=== PATIENT | female | born 1980 | race Two or more races ===

== ENCOUNTER 2021-04-02 21:29 | Emergency (ER) | payer MEDICAID ==
[~2021-04-02] VITALS: Ht 152.4 cm; Wt 54.4 kg
[2021-04-02 21:30] VITALS: BP 110/84
--- NOTE | 2021-04-02 22:01 | NUR ---
XRAY AT BEDSIDE.
[2021-04-02] MEDS ORDERED: NAPR-1164 PO (22:09)
[2021-04-02] MEDS ORDERED: NAPROXEN 250 MG TABLET ONE (22:28)
[2021-04-02] MEDS ORDERED: NAPROXEN 500 MG TABLET PO ONE (22:30)
--- NOTE | 2021-04-03 00:20 | NUR ---
PT is medically stable for d/c . Patient discharged to home in stable condition. Rx and Written and verbal after care instructions given. Patient verbalizes understanding of instruction.
== END 2021-04-03 00:37 | disposition home or self-care (01) ==
LOC: ER 21:35
DX: M94.0 Chondrocostal junction syndrome [Tietze] (principal); M77.11 Lateral epicondylitis, right elbow; Z88.6 Allergy status to analgesic agent
CPT/HCPCS: 71045-TC; 73080-TC

== ENCOUNTER 2022-11-11 01:58 | Inpatient (IN) | payer MEDICAID ==
[~2022-11-11] VITALS: Ht 162.6 cm; Wt 63.0 kg
[~2022-11-11 01:58] MED LIST: NAPR-1164 PO
--- NOTE | 2022-11-11 02:15 | NUR ---
TO ER BED 10. BIBSON C/O SHARP CHEST PAIN X THIS AM. ADMITS TO NAUSEA. PT IS ALERT AND ORIENTED. RR EVEN AND NONLABORED. CONNECTED TO POX AND HEART MONITOR
[2022-11-11] MEDS ORDERED: KETOROLAC TROMETHAMINE INJ 30 MG/ML VIAL IV ONE ×2 (02:30→05:00)
[2022-11-11] MEDS ORDERED: ONDANSETRON HCL/PF 4 MG/2 ML VIAL IV ONE ×2 (02:30→05:00)
[2022-11-11] MEDS ORDERED: KETOROLAC TROMETHAMINE 15 MG/ML VIAL ONE ×2 (02:32→05:06)
[2022-11-11] MEDS ORDERED: ONDANSETRON HCL/PF 4 MG/2 ML VIAL ONE ×2 (02:32→05:06)
[2022-11-11 02:42] LABS: BASOPHILS # (AUTO) 0.1 K/uL (0.0-0.2); BASOPHILS % (AUTO) 0.7 % (0.0-2.0); EOSINOPHILS % (AUTO) 2.6 % (0.0-6.0); HEMATOCRIT 38 % (33-45); HEMOGLOBIN 12.8 g/dL (11.5-14.8); LYMPHOCYTES # (AUTO) 2.8 K/uL (0.8-4.8); MEAN CORPUSCULAR HGB CONC 34 g/dl (31.0-36.0); MEAN CORPUSCULAR VOLUME 86 fL (82-100); MONOCYTES # (AUTO) 0.6 K/uL (0.1-1.30); MONOCYTES % (AUTO) 5.9 % (2.0-12.0); NEUTROPHILS # (AUTO) 6.3 K/uL (1.8-8.9); NEUTROPHILS % (AUTO) 62.8 % (43.0-81.0); PLATELET COUNT (AUTO) 239 K/uL (150-450); RED BLOOD CELL COUNT(AUTO) 4.41 MIL/uL (4.0-5.2)
--- NOTE | 2022-11-11 02:42 | NUR ---
IV LINE ESTABLISHED, RAC20G
[2022-11-11 02:53] LABS: CALCIUM, SERUM 8.9 mg/dL (8.5-10.1); CREATININE 0.8 mg/dL (0.6-1.3); POTASSIUM 3.6 mmol/L (3.5-5.1)
[2022-11-11 02:54] LABS: ALANINE AMINOTRANSFERASE 28 U/L (12-78); ALBUMIN 3.7 g/dL (3.4-5.0); ALKALINE PHOSPHATASE 38 U/L (46-116); ASPARTATE AMINOTRANSFERASE 14 U/L (15-37); BILIRUBIN,DIRECT 0.1 mg/dL (0.0-0.2); BILIRUBIN,TOTAL 0.4 mg/dL (0.2-1.0); LIPASE 147 U/L (73-393); TOTAL PROTEIN, SERUM 7.6 g/dL (6.4-8.2)
[2022-11-11 02:56] LABS: ALBUMIN 3.7 g/dL (3.4-5.0); BILIRUBIN,TOTAL 0.4 mg/dL (0.2-1.0); TOTAL PROTEIN, SERUM 7.6 g/dL (6.4-8.2)
--- NOTE | 2022-11-11 03:06 | NUR ---
URINE SAMPLE COLLECTED
[2022-11-11 04:04] LABS: BILIRUBIN,URINE NEGATIVE (NEGATIVE); COLOR,URINE YELLOW (YELLOW); LEUKOCYTE ESTERASE ,URINE NEGATIVE (NEGATIVE); NITRITE, URINE NEGATIVE (NEGATIVE); PH,URINE 6.5 (5.0-8.0); PROTEIN,URINE NEGATIVE (NEGATIVE); UGLUCOSE NEGATIVE (NEGATIVE); UROBILINOGEN,URINE 0.2 EU/dL (0.2)
--- NOTE | 2022-11-11 05:39 | NUR ---
COVID SWAB COLLECTED
[2022-11-11] MEDS ORDERED: METRONIDAZOLE 500MG/ NS 100ML 100 ML IV ONE (05:50)
[2022-11-11] MEDS ORDERED: CEFTRIAXONE 1GM BAG (ER ONLY) 50 ML IV ONE (05:50)
[2022-11-11] MEDS ORDERED: FLAGYL/NS RTU 500 MG/100 ML PIGGYBACK IV ONE (06:00)
[2022-11-11] MEDS ORDERED: CEFTRIAXONE 1GM BAG (ER ONLY) 1 GM/50 ML PIGGYBACK IV ONE (06:00)
[2022-11-11] MEDS ORDERED: MAG HYDROX/AL HYDROX/SIMETH 30 ML UDC PO PRN (06:30)
[2022-11-11] MEDS ORDERED: ZOLPIDEM TARTRATE 5 MG TABLET PO PRN (06:30)
[2022-11-11] MEDS ORDERED: ACETAMINOPHEN 325 MG TABLET PO PRN (06:30)
[2022-11-11] MEDS ORDERED: Z GUARD REMEDY 4 OZ OINT TP PRN (06:30)
[2022-11-11] MEDS ORDERED: ONDANSETRON HCL/PF 4 MG/2 ML VIAL IVP PRN (06:30)
[2022-11-11] MEDS ORDERED: MAGNESIUM HYDROXIDE 30 ML UDC PO PRN (06:30)
--- NOTE | 2022-11-11 08:00 | NUR ---
PT RESTING IN BED, EYES CLOSED. ABLE TO BE AWAKENED. NOT IN ACUTE DISTRESS.
[2022-11-11] MEDS: IV D5/0.45 NACL 1,000 ML IV PRN ×2 (08:07→15:16)
[2022-11-11] MEDS: PANTOPRAZOLE 40 MG VIAL IV SCH (09:45)
[2022-11-11] MEDS ORDERED: PANTOPRAZOLE 40 MG VIAL ONE (10:13)
[2022-11-11] MEDS: ZOSYN IVPB 3.375 G in IV D5W 50ml IV SCH ×3 (10:30→21:01)
--- NOTE | 2022-11-11 11:15 | NUR ---
CONSENT FORMS SIGNED BY PT AND PLACED IN THE CHART.
--- NOTE | 2022-11-11 14:11 | NUR ---
tele [phone] bed 2
--- NOTE | 2022-11-11 14:34 | NUR ---
REPORT GIVEN TO HELENA SANCHEZ - CONTINUE PLAN OF CARE.
--- NOTE | 2022-11-11 14:45 | NUR ---
MS RN ADMITTING NOTE RECEIVED PATIENT FROM ER AT 1435H VIA GURNEY WITH 1 ER ADJUNCT LATIN PROFESSOR AND TWO SONS; PATIENT IS ALERT AND ORIENTED X 4, ON ROOM AIR BREATHING EVENLY AND TOLERATING WELL, NO RESPIRATORY DISTRESS NOTED; DENIES ANY PAIN OR DISCOMFORT AT THIS TIME; PATIENT ORIENTED TO STAFF AND ROOM, VITAL SIGNS TAKEN STABLE AND RECORDED; SKIN IS INTACT; WITH IV ACCESS IN RAC G20, INTACT AND PATENT; SAFETY PRECAUTIONS IN PLACED, BED IN LOW POSITION, LOCKED, SIDE RAILS UP X 3, CALL LIGHT WITHIN REACH; ENDORSED TO BEDSIDE NURSE FOR CONTINUITY OF CARE
--- NOTE | 2022-11-11 19:39 | NUR ---
MS RN CLOSING NOTE PATIENT AWAKE IN BED, ALERT AND ORIENTED X 4, ON ROOM AIR BREATHING EVENLY AND TOLERATING WELL, NO RESPIRATORY DISTRESS NOTED; DENIES ANY PAIN OR DISCOMFORT AT THIS TIME, WITH IV ACCESS IN RAC G20, INTACT AND PATENT; SAFETY PRECAUTIONS IN PLACED, BED IN LOW POSITION, LOCKED, SIDE RAILS UP X 3, CALL LIGHT WITHIN REACH; ENDORSED TO NIGHTSHIFT NURSE FOR CONTINUITY OF CARE
[2022-11-11 20:00] VITALS: BP 90/58
--- NOTE | 2022-11-11 20:00 | NUR ---
MS RN OPENING NOTE RECEIVED PATIENT AWAKE IN BED, ALERT AND ORIENTED X 4, ON ROOM AIR BREATHING EVENLY AND TOLERATING WELL, NO RESPIRATORY DISTRESS NOTED. COMPLAINS OF HEADACHE 2/. GIVEN TYLENOL TAB PRN ORDERED. WITH IV ACCESS IN RIGHT AC #20, INTACT AND PATENT INFUSING D5NS AT 75ML/H. KEPT COMFORTABLE. SAFETY PRECAUTIONS IN PLACED, BED IN LOW POSITION, LOCKED, SIDE RAILS UP X 3, CALL LIGHT WITHIN REACH. WILL CONTINUE TO MONITOR.
[2022-11-12] MEDS: ZOSYN IVPB 3.375 G in IV D5W 50ml IV SCH ×4 (04:13→21:21)
[2022-11-12 06:24] LABS: CALCIUM, SERUM 7.9 mg/dL (8.5-10.1); CREATININE 0.8 mg/dL (0.6-1.3); PHOSPHORUS 3.7 mg/dL (2.5-4.9); POTASSIUM 3.6 mmol/L (3.5-5.1)
--- NOTE | 2022-11-12 06:24 | NUR ---
MS RN CLOSING NOTE RECEIVED PATIENT AWAKE IN BED, ALERT AND ORIENTED X 4, ON ROOM AIR BREATHING EVENLY AND TOLERATING WELL, NO RESPIRATORY DISTRESS NOTED. WITH IV ACCESS IN RIGHT AC #20, INTACT AND PATENT INFUSING D5NS AT 75ML/H. KEPT COMFORTABLE. SAFETY PRECAUTIONS IN PLACED. SURGERY SCHEDULED TODAY BETWEEN 3-4PM. PATIENT WAS INFORMED. KEPT COMFORTABLE. WILL ENDORSE TO NEXT SHIFT RN FOR AMADA.
[2022-11-12 06:30] LABS: BASOPHILS % (AUTO) 0.4 % (0.0-2.0); EOSINOPHILS % (AUTO) 3.6 % (0.0-6.0); HEMATOCRIT 34 % (33-45); HEMOGLOBIN 11.7 g/dL (11.5-14.8); LYMPHOCYTES # (AUTO) 1.8 K/uL (0.8-4.8); LYMPHOCYTES % (AUTO) 32.5 % (20.0-44.0); MEAN CORPUSCULAR HGB CONC 34 g/dl (31.0-36.0); MEAN CORPUSCULAR VOLUME 85 fL (82-100); MONOCYTES # (AUTO) 0.4 K/uL (0.1-1.30); MONOCYTES % (AUTO) 6.3 % (2.0-12.0); NEUTROPHILS # (AUTO) 3.2 K/uL (1.8-8.9); NEUTROPHILS % (AUTO) 57.2 % (43.0-81.0); PLATELET COUNT (AUTO) 219 K/uL (150-450); RED BLOOD CELL COUNT(AUTO) 3.99 MIL/uL (4.0-5.2); WHITE BLOOD COUNT (AUTO) 5.7 K/uL (4.3-11.0)
--- NOTE | 2022-11-12 07:30 | NUR ---
MS RN OPENING NOTE RECEIVED PATIENT AWAKE IN BED, ALERT AND ORIENTED X 4, ON ROOM AIR BREATHING EVENLY AND TOLERATING WELL, NO RESPIRATORY DISTRESS NOTED. WITH IV ACCESS IN RIGHT AC #20, INTACT AND PATENT INFUSING D5NS AT 75ML/H. SAFETY PRECAUTIONS IN PLACED. SURGERY SCHEDULED TODAY BETWEEN 3-4PM. WILL CONTINUE TO MONITOR.
[2022-11-12 08:00] VITALS: BP 90/40
[2022-11-12] MEDS: PANTOPRAZOLE 40 MG VIAL IV SCH (08:19)
[2022-11-12] MEDS: IV D5/0.45 NACL 1,000 ML IV PRN (09:16)
[2022-11-12] MEDS ORDERED: LIDOCAINE 1% INJ 50 ML MDV IJ ONE (10:09)
[2022-11-12] MEDS ORDERED: BUPIVACAINE MPF W/EPI 0.25% 30 ML VIAL ONE (10:09)
[2022-11-12] MEDS ORDERED: IV NS 0.9% 500 ML IV ONE (10:30)
--- NOTE | 2022-11-12 14:50 | NUR ---
RN NOTES PATIENT LEFT THE UNIT TO OR FOR LAP SCAR PROCEDURE. WILL MONITOR.
[2022-11-12] MEDS ORDERED: FENTANYL PF 250MCG/5ML AMPUL ONE (16:03)
[2022-11-12] MEDS ORDERED: MIDAZOLAM HCL 2 MG/2ML VIAL ONE (16:04)
[2022-11-12] MEDS ORDERED: HYDROMORPHONE INJ 2 MG/ML DISP.SYRIN ONE (16:04)
[2022-11-12] MEDS ORDERED: FAMOTIDINE/PF INJ 20 MG/2 ML VIAL IV ONE (16:05)
[2022-11-12] MEDS ORDERED: ROCURONIUM BROMIDE 50 MG/5 ML ONE (16:05)
[2022-11-12] MEDS ORDERED: ANESTHESIA TRAY IN PYXIS 1 EA TRAY MC ONE (16:19)
--- NOTE | 2022-11-12 17:57 | NUR ---
PATIENT STILL NOT IN THE UNIT AT THIS TIME. WILL MONITOR.
--- NOTE | 2022-11-12 18:34 | NUR ---
RN CLOSING NOTE PATIENT CAME BACK FROM OR AT AROUND 1820H. PT IS ASLEEP IN BED, EASILY AROUSED. ON ROOM AIR BREATHING EVENLY AND TOLERATING WELL, NO RESPIRATORY DISTRESS NOTED; VITAL SIGNS TAKEN STABLE AND RECORDED. INITAL VITALS ARE FOLLOWS BP-100/64 OH-69 SPO2-98% T-98 MONITOR PATIENT'S VITALS EVERY 15MINS FOR ONE HOUR. INCISION SITE AT ABDOMINAL AREA INTACT, NO SIGNS OF SWELLING,REDNESS AND BLEEDING WITH IV ACCESS IN RAC G20 SL, INTACT AND PATENT;HEAD OF THE BED ELEVATED ORDERED. SAFETY PRECAUTIONS IN PLACED, BED IN LOW POSITION, LOCKED, SIDE RAILS UP X 3, CALL LIGHT WITHIN REACH; KEPT COMFORTABLE. ENDORSED TO NIGHT NURSE FOR CONTINUITY OF CARE.
--- NOTE | 2022-11-12 19:45 | NUR ---
MSRN FULLY AWAKE, APPEARS TO BE IN PAIN, FAMILY AT BEDSIDE. ASSESSED LEVEL OF PAIN, TOLERABLE FOR NOW A TRANSLATED BY FAMILY MEMBER. PRESENT IVF INFUSING WELL. PLAN OF CARE AND MEDICATION REGIMEN DISCUSSED WITH PATIENT AND FAMILY, WELL UNDERSTOOD. KEPT COMFORTABLE TO CONTINUE.
[2022-11-12] MEDS: KETOROLAC TROMETHAMINE INJ 30 MG/ML VIAL IM PRN (20:07)
--- NOTE | 2022-11-12 20:10 | NUR ---
MSRN POST OP PAIN LEVEL 8, TORADOL 15 MG ADMINISTERED ORDERED. CLOSELY WATCHED.
--- NOTE | 2022-11-12 20:15 | NUR ---
MSRN ENCOURAGED DEEP BREATHING EXERCISES, REMINDED TO CALL STAFF FOR ANY FURTHER DISCOMFORT. CALL LIGHT WITHIN REACH.
[2022-11-12 21:00] VITALS: BP 96/60
--- NOTE | 2022-11-13 01:10 | NUR ---
MSRN ASSISTED TO RESTROOM, VOIDED FREELY. NAUSEATED, ZOFRAN ADMINISTERED. WITH RELIEF. INCENTIVE SPIROMETRY USE INSTRUCTED WITH RETURN DEMO. WELL UNDERSTOOD. IVF CONTINUED.
[2022-11-13] MEDS: KETOROLAC TROMETHAMINE INJ 30 MG/ML VIAL IM PRN ×2 (02:05→18:35)
[2022-11-13] MEDS: ZOSYN IVPB 3.375 G in IV D5W 50ml IV SCH ×4 (05:04→21:46)
[2022-11-13 05:45] LABS: HEMATOCRIT 34 % (33-45); HEMOGLOBIN 11.5 g/dL (11.5-14.8); LYMPHOCYTES # (AUTO) 0.4 K/uL (0.8-4.8); LYMPHOCYTES % (AUTO) 2.2 % (20.0-44.0); MEAN CORPUSCULAR HGB CONC 34 g/dl (31.0-36.0); MEAN CORPUSCULAR VOLUME 85 fL (82-100); MONOCYTES # (AUTO) 0.4 K/uL (0.1-1.30); MONOCYTES % (AUTO) 2.2 % (2.0-12.0); NEUTROPHILS # (AUTO) 17.8 K/uL (1.8-8.9); NEUTROPHILS % (AUTO) 95.6 % (43.0-81.0); PLATELET COUNT (AUTO) 217 K/uL (150-450); RED BLOOD CELL COUNT(AUTO) 3.99 MIL/uL (4.0-5.2); WHITE BLOOD COUNT (AUTO) 18.6 K/uL (4.3-11.0)
[2022-11-13 06:17] LABS: ALBUMIN 3.1 g/dL (3.4-5.0); BILIRUBIN,TOTAL 0.7 mg/dL (0.2-1.0); CALCIUM, SERUM 8.1 mg/dL (8.5-10.1); CREATININE 0.8 mg/dL (0.6-1.3); MAGNESIUM 1.9 mg/dL (1.8-2.4); POTASSIUM 4.1 mmol/L (3.5-5.1); TOTAL PROTEIN, SERUM 6.8 g/dL (6.4-8.2)
--- NOTE | 2022-11-13 06:21 | NUR ---
MSRN REMAINS UNCHANGED. IVF CONTINUE. EAGER TO GO HOME
--- NOTE | 2022-11-13 07:36 | NUR ---
MS RN OPENING NOTE RECEIVED PATIENT AWAKE IN BED, ALERT AND ORIENTED X 4, ON ROOM AIR BREATHING EVENLY AND TOLERATING WELL, NO RESPIRATORY DISTRESS NOTED. WITH IV ACCESS IN RIGHT AC #20, INTACT AND PATENT INFUSING D5NS AT 75ML/H. SAFETY PRECAUTIONS IN PLACED. ALL THREE SURGICAL ABDOMINAL LAPROSCOPIC PUNCTURES SITES ARE CLEAN, DRY, INTACT. PATIENT ADMITS TO MINIMAL SURGICAL SITE PAIN AND SOME GASTRITIS. BOWEL SOUNDS ARE HYPOACTIVE TO AUSCULTATION. WILL CONTINUE TO MONITOR.
[2022-11-13 08:00] VITALS: BP 96/56
[2022-11-13] MEDS: PANTOPRAZOLE 40 MG TABLET.DR PO SCH (08:44)
[2022-11-13] MEDS ORDERED: IV NS 0.9% 500 ML IV ONE (10:30)
[2022-11-13] MEDS: IV D5/0.45 NACL 1,000 ML IV PRN (12:43)
[2022-11-13] MEDS: CALCIUM CARBONATE 500 MG TAB.CHEW PO SCH ×2 (12:55→20:25)
[2022-11-13 16:00] VITALS: BP 105/66
--- NOTE | 2022-11-13 19:30 | NUR ---
MS RN OPENING NOTE RECEIVED PATIENT AWAKE IN BED, PATIENT IS ALERT AND ORIENTED X 4, ON ROOM AIR. BREATHING EVEN AND UNLABORED TOLERATING WELL, NO RESPIRATORY DISTRESS NOTED. NO SOB NOTED.WITH IV ACCESS IN RIGHT AC #20, INTACT AND PATENT INFUSING D5 1/2 NS AT 75ML/H. ABLE TO MAKE NEEDS KNOWN. NO PAIN NOTED. ALL SAFETY PRECAUTIONS IN PLACE. BED LOCKED IN THE LOWEST POSITION. CALL LIGHT AND TABLE IN EASY REACH. SIDE RAILS UP TIMES 2. WILL CONTINUE TO MONITOR CLOSELY.
[2022-11-13 20:00] VITALS: BP 101/63
[2022-11-14] MEDS: ZOSYN IVPB 3.375 G in IV D5W 50ml IV SCH ×3 (04:19→16:00)
[2022-11-14] MEDS: IV D5/0.45 NACL 1,000 ML IV PRN (05:06)
[2022-11-14 06:01] LABS: BASOPHILS % (AUTO) 0.2 % (0.0-2.0); EOSINOPHILS % (AUTO) 0.9 % (0.0-6.0); HEMATOCRIT 31 % (33-45); HEMOGLOBIN 10.5 g/dL (11.5-14.8); LYMPHOCYTES # (AUTO) 2.3 K/uL (0.8-4.8); LYMPHOCYTES % (AUTO) 24.7 % (20.0-44.0); MEAN CORPUSCULAR HGB CONC 34 g/dl (31.0-36.0); MEAN CORPUSCULAR VOLUME 85 fL (82-100); MONOCYTES # (AUTO) 0.5 K/uL (0.1-1.30); MONOCYTES % (AUTO) 5.4 % (2.0-12.0); NEUTROPHILS # (AUTO) 6.3 K/uL (1.8-8.9); NEUTROPHILS % (AUTO) 68.8 % (43.0-81.0); PLATELET COUNT (AUTO) 181 K/uL (150-450); WHITE BLOOD COUNT (AUTO) 9.2 K/uL (4.3-11.0)
[2022-11-14 06:11] LABS: ALBUMIN 2.7 g/dL (3.4-5.0); BILIRUBIN,DIRECT 0.3 mg/dL (0.0-0.2); BILIRUBIN,TOTAL 0.8 mg/dL (0.2-1.0); TOTAL PROTEIN, SERUM 6.1 g/dL (6.4-8.2)
--- NOTE | 2022-11-14 06:41 | NUR ---
MS RN CLOSING NOTE PATIENT AWAKE IN BED, PATIENT IS ALERT AND ORIENTED X 4, ON ROOM AIR. BREATHING EVEN AND UNLABORED TOLERATING WELL, NO RESPIRATORY DISTRESS NOTED. NO SOB NOTED.WITH IV ACCESS IN RIGHT AC #20, INTACT AND PATENT INFUSING D5 1/2 NS AT 75ML/H. ABLE TO MAKE NEEDS KNOWN. NO PAIN NOTED. ALL DUE MEDS GIVEN ORDERED.ALL SAFETY PRECAUTIONS IN PLACE. BED LOCKED IN THE LOWEST POSITION. CALL LIGHT AND TABLE IN EASY REACH. SIDE RAILS UP TIMES 2. WILL ENDORSE FOR AMADA..
--- NOTE | 2022-11-14 07:40 | NUR ---
MS RN OPENING NOTE RECEIVED PATIENT ASLEEP IN BED, EASILY AROUSED. PATIENT IS ALERT AND ORIENTED X 4, ON ROOM AIR BREATHING EVENLY AND TOLERATING WELL, NO RESPIRATORY DISTRESS NOTED. PATIENT HAS IV ACCESS IN RIGHT AC #20, INTACT AND PATENT INFUSING D5NS AT 75ML/H. SAFETY PRECAUTIONS IN PLACE. ALL THREE SURGICAL ABDOMINAL LAPROSCOPIC PUNCTURES SITES ARE CLEAN, DRY, INTACT. PATIENT HAS LESS PAIN THAN YESTERDAY. BOWEL SOUNDS ARE HYPOACTIVE TO AUSCULTATION. WILL CONTINUE TO MONITOR.
[2022-11-14] MEDS: PANTOPRAZOLE 40 MG TABLET.DR PO SCH (08:12)
[2022-11-14] MEDS: CALCIUM CARBONATE 500 MG TAB.CHEW PO SCH ×2 (08:12→14:11)
[2022-11-14 08:28] VITALS: BP 100/72
[2022-11-14 08:33] LABS: CALCIUM, SERUM 7.8 mg/dL (8.5-10.1); CREATININE 0.8 mg/dL (0.6-1.3); PHOSPHORUS 3.4 mg/dL (2.5-4.9); POTASSIUM 3.2 mmol/L (3.5-5.1)
[2022-11-14] MEDS ORDERED: K PHOS NEUTRAL 250 MG TABLET PO ONE (10:30)
[2022-11-14] MEDS ORDERED: POTASSIUM CHLORIDE 20 MEQ TAB.PRT.SR PO SCH (10:30)
[2022-11-14] MEDS ORDERED: TRAM50TA PO (14:09)
[2022-11-14 16:18] VITALS: BP 110/70
--- NOTE | 2022-11-14 17:27 | NUR ---
PATIENT CARE SPECIALIST NOTE Patient did verbal teach back of her home care discharge instructions, took her paper prescription for tramadol medication and signed her discharge instructions receipt. Patient accounted for all of her listed belongings/valuables. Patient departed walking on foot with her son at 17:08hours to private car bound for home.
== END 2022-11-14 17:10 | disposition home or self-care (01) | DRG 263 ==
LOC: ER 01:59 → TRANSITION 09:08 → MED 14:52
PROVIDERS: ADMIT Nurse Practitioner Acute Care; ATTEND Registered Nurse
PROC: 0FT44ZZ Resection of Gallbladder, Percutaneous Endoscopic Approach (ICD-10-PCS; principal; 2022-11-12)
PROC: 0FB04ZX Excision of Liver, Percutaneous Endoscopic Approach, Diagnostic (ICD-10-PCS; 2022-11-12)
DX: K80.00 Calculus of gallbladder with acute cholecystitis without obstruction (principal); E87.1 Hypo-osmolality and hyponatremia; E86.1 Hypovolemia; Z20.822 Contact with and (suspected) exposure to COVID-19; Z88.6 Allergy status to analgesic agent; Z88.5 Allergy status to narcotic agent; K21.9 Gastro-esophageal reflux disease without esophagitis; D72.829 Elevated white blood cell count, unspecified
CPT/HCPCS: 36415; 71045-TC; 76705-TC; 80048-TC; 80053-TC; 80076-TC; 82247-TC; 82248-TC; 83690-TC; 83735-TC; 84100-TC; 84484-TC; 84703-TC; 85025-TC; 85610-TC; 85730-TC; 86850-TC; 87081-TC; C9113; C9803; G0378; J0690; J0696; J1100; J1170; J1885; J2250; J2405; J2543; J2704; J2765; J3010; J3490; J7030; J7040; J7042; J7060

== ENCOUNTER 2023-12-21 12:13 | Emergency (ER) | payer MEDICAID ==
[~2023-12-21] VITALS: Ht 157.5 cm; Wt 54.4 kg
[~2023-12-21 12:13] MED LIST changes: -NAPR-1164 PO; +TRAM50TA PO
[2023-12-21 12:20] VITALS: BP 119/79; TEMP 98.5
[2023-12-21] MEDS ORDERED: IBUP-1955 PO (14:31)
[2023-12-21] MEDS ORDERED: CYCL10TA9 PO (14:31)
[2023-12-21 15:21] VITALS: O2SAT 100
== END 2023-12-21 15:23 | disposition home or self-care (01) ==
LOC: ER 12:21
DX: S33.5XXA Sprain of ligaments of lumbar spine, initial encounter (principal); S16.1XXA Strain of muscle, fascia and tendon at neck level, initial encounter; Z79.899 Other long term (current) drug therapy; Z88.5 Allergy status to narcotic agent; Z88.1 Allergy status to other antibiotic agents; V49.49XA Driver injured in collision with other motor vehicles in traffic accident, initial encounter; Y93.89 Activity, other specified; Y92.89 Other specified places as the place of occurrence of the external cause; Y99.8 Other external cause status
CPT/HCPCS: 72050-TC; 72074-TC; 72110-TC